=== PATIENT | male | born 1965 | race Caucasian/White ===

== ENCOUNTER 2018-07-25 22:17 | Observation (INO) | payer MEDICARE ==
[~2018-07-25] VITALS: Ht 182.9 cm; Wt 65.0 kg
[2018-07-25] MEDS ORDERED: ZIPRASIDONE 20 MG INJ IM ONE (22:36)
[2018-07-25] MEDS ORDERED: LORazepam 2 MG/ML, 1ML ONE (22:36)
[2018-07-25] MEDS ORDERED: DIPHENHYDRAMINE 50 MG/ML, 1ML ONE (22:36)
--- NOTE | 2018-07-25 22:40 | NUR ---
pt assisted to ed room 1 per [facility] deputies and security,pt verbally aggressive and threating staff, security placed pt in 4 point restraints, pt medicated per may. room secured, sitter at doorway for continous monitoring Addendum: 07/25/18 at 2330 by SHANICE pt belongings 2 bags placed in security locker
--- NOTE | 2018-07-25 23:40 | NUR ---
pt resting calmly with eyes closed, nadn, equal chest rise/fall observed,security at bedside to remove restraints, monitors in place,room scured, sitter at doorway for continous monitoring.
[2018-07-26] MEDS ORDERED: ZIPRASIDONE 20 MG INJ IM ONE
[2018-07-26] MEDS ORDERED: DIPHENHYDRAMINE 50 MG/ML, 1ML IVPush ONE
[2018-07-26] MEDS ORDERED: LORazepam 2 MG/ML, 1ML IVPush ONE
--- NOTE | 2018-07-26 00:04 | NUR ---
late entry 9332- pt medicated with im medications per erp order, see mar
[2018-07-26 00:15] LABS: BASOPHILS # (AUTO) 0.03 x10^3/uL (0-0.1); BASOPHILS % (AUTO) 1 % (0-1); EOSINOPHILS # (AUTO) 0.02 x10^3/uL (0-0.4); EOSINOPHILS % (AUTO) 0 % (1-7); LYMPHOCYTES # (AUTO) 1.28 x10^3/uL (1-3.4); LYMPHOCYTES % (AUTO) 28 % (22-44); MD NO; MEAN CORPUSCULAR HEMOGLOBIN 30.1 pg (27.5-34.5); MEAN CORPUSCULAR HGB CONC 33.3 g/dL (33.2-36.2); MEAN CORPUSCULAR VOLUME 90.3 fL (81-97); MEAN PLATELET VOLUME 8.3 fL (7.4-10.4); MONOCYTES # (AUTO) 0.44 x10^3/uL (0.2-0.8); MONOCYTES % (AUTO) 10 % (2-9); NEUTROPHILS # (AUTO) 2.75 x10^3/uL (1.8-6.8); NEUTROPHILS % (AUTO) 61 % (42-75); PLATELET COUNT 157 x10^3/uL (130-400); RED BLOOD COUNT 4.37 x10^6/uL (4.38-5.82); RED CELL DISTRIBUTION WIDTH 14.6 % (9.4-14.8)
--- NOTE | 2018-07-26 00:24 | NUR ---
pt resting calmly, nadn, equal chest rise/fall observed, monitors in place, sitter at doorway for continous monitoring
--- NOTE | 2018-07-26 01:02 | NUR ---
report given to shayna nava
--- NOTE | 2018-07-26 02:02 | NUR ---
PT SLEEPING ON SIDE ON [facility], SITTER AT DOORWAY AND WILL CONT TO MONITOR.
[2018-07-26 02:03] LABS: ALBUMIN 3.3 g/dL (3.4-5.0); ANION GAP 6 mmol/L (5-15); CALCIUM 8.6 mg/dL (8.5-10.1); CHLORIDE 104 mmol/L (98-107)
[2018-07-26 02:04] LABS: SALICYLATE LEVEL < 1.7 mg/dL (2.8-20.0)
[2018-07-26 02:07] LABS: ALANINE AMINOTRANSFERASE 11 U/L (12-78); ALKALINE PHOSPHATASE 67 U/L (45-117); BILIRUBIN,TOTAL 0.5 mg/dL (0.2-1.0); CREATININE 0.96 mg/dL (0.7-1.3); TOTAL PROTEIN 6.3 g/dL (6.4-8.2)
[2018-07-26 02:08] LABS: ACETAMINOPHEN < 2 mcg/mL (10-30)
--- NOTE | 2018-07-26 03:48 | NUR ---
WATER AND SNACKS PROVIDED TO PT REQUESTED. SITTER AT DOORWAY.
--- NOTE | 2018-07-26 05:10 | NUR ---
Pt report from [facility]. This rn to assume care of pt. No immediate needs from pt. Roller doors in place. Sitter in hallway.
[2018-07-26] MEDS ORDERED: ONDANSETRON 2MG/ML, 2ML IVPush PRN (06:30)
[2018-07-26] MEDS ORDERED: TRAZODONE 50MG TABLET PO PRN (06:30)
[2018-07-26] MEDS ORDERED: ACETAMINOPHEN 325 MG TABLET PO PRN (06:30)
[2018-07-26] MEDS ORDERED: POLYETHYLENE GLYCOL 17 GM PACKET PO PRN (06:30)
--- NOTE | 2018-07-26 06:58 | NUR ---
Pt report to [facility].
--- NOTE | 2018-07-26 07:00 | NUR ---
REPORT RECEIVED, CARE ASSUMED.
--- NOTE | 2018-07-26 07:34 | NUR ---
RECEIVED CALL FROM SANDRINE MAX. POC DISCUSSED. SANDRINE TO CONTACT PSYCHIATRIST RE: POSSIBLE ADMIT TO PSYCH UNIT.
[2018-07-26 08:00] VITALS: BP 122/74
--- NOTE | 2018-07-26 08:37 | NUR ---
PT TO BE TRANSFERED TO 3E
== END 2018-07-26 08:45 | disposition home or self-care (01) ==
LOC: ED 23:59 → EDIP 07-26 06:23 → 3E 07-26 06:38 → EDIP 07-26 06:38 → INTOOBSV 07-26 06:38 → UNDOADMOB 07-26 06:38 → UNDOADMIN 07-26 06:38 → ED 07-26 08:45
PROVIDERS: ADMIT Internal Medicine; ATTEND Internal Medicine
DX: F23 Brief psychotic disorder (principal); Z59.0 Homelessness
CPT/HCPCS: 36415; 80053; 80307; 83735; 85025; 93005; 96372; 96374; 96375; 99284; G0378; J1200; J2060; J3486